=== PATIENT | female | born 1980 | race Caucasian/White ===

== ENCOUNTER 2017-02-02 09:35 | Outpatient (CLI) | payer BC ==
[2017-02-02 10:17] LABS: BILIRUBIN,URINE NEGATIVE (NEGATIVE)
[2017-02-02 10:20] LABS: BASOPHILS # (AUTO) 0.1 10^3/uL (0.0-0.1); EOSINOPHILS # (AUTO) 0.2 10^3/uL (0.0-0.7); EOSINOPHILS % (AUTO) 1.5 %; HCT - HEMATOCRIT 40.4 % (37.0-47.0); HGB - HEMOGLOBIN 13.4 g/dL (12.0-16.0); LYMPHOCYTES # (AUTO) 1.9 10^3/uL (1.5-3.5); LYMPHOCYTES % (AUTO) 17.9 %; MEAN CORPUSCULAR HEMOGLOBIN 31.4 pg (27.0-31.0); MEAN CORPUSCULAR HGB CONC 33.3 g/dL (32.0-36.0); MEAN CORPUSCULAR VOLUME 94.5 fL (81.0-99.0); MEAN PLATELET VOLUME 8.8 fL (7.9-10.8); MONOCYTES # (AUTO) 0.8 10^3/uL (0.0-1.0); MONOCYTES % (AUTO) 7.7 %; NEUTROPHILS # (AUTO) 7.5 10^3/uL (1.5-6.6); NEUTROPHILS % (AUTO) 71.9 %; RED BLOOD COUNT 4.28 10^6/uL (4.20-5.40); RED CELL DISTRIBUTION WIDTH 13.2 % (12.0-15.0); UNCORRECTED WHITE BLOOD COUNT 10.4 x10^3/uL; WHITE BLOOD COUNT 10.4 x10^3/uL (4.8-10.8)
[2017-02-02 10:30] LABS: HEMOGLOBIN A1C 0.44 g/dL
[2017-02-06 20:41] LABS: TEST RESULT REPORT
== END 2017-02-02 09:36 | disposition home or self-care (01) ==
LOC: LAB 09:35
PROVIDERS: ATTEND Registered Nurse
DX: Z36.9 Encounter for antenatal screening, unspecified (principal)
CPT/HCPCS: 36415; 81001; 81599; 83036; 84443; 85025; 86762; 86850; 86900; 86901; 87340; 87389

== ENCOUNTER 2017-02-23 10:28 | Outpatient (CLI) | payer BC ==
[2017-02-24 06:23] LABS: TEST RESULT REPORT
[2017-02-27 14:22] LABS: TEST RESULT REPORT
== END 2017-02-23 10:29 | disposition home or self-care (01) ==
LOC: LAB 10:28
PROVIDERS: ATTEND Registered Nurse
DX: O28.8 Other abnormal findings on antenatal screening of mother (principal); Z36.0 Encounter for antenatal screening for chromosomal anomalies
CPT/HCPCS: 36415; 81599; 84163; 86592

== ENCOUNTER 2017-03-23 10:34 | Outpatient (CLI) | payer BC | END 2017-03-23 10:35 | disposition home or self-care (01) | LOC: LAB 10:34 | PROVIDERS: ATTEND Nurse Practitioner Obstetrics & Gynecology | DX: Z36.9 Encounter for antenatal screening, unspecified (principal) | CPT/HCPCS: 36415; 81599; 82105; 82677; 84163; 84702; 86336 ==

== ENCOUNTER 2017-04-27 12:30 | Outpatient (CLI) | payer BC, OTHER ==
--- NOTE | 2017-05-01 12:07 | Ultrasound Report ---
OB ULTRASOUND: 04/27/2017 CLINICAL INDICATION: anatomy. TECHNIQUE: Real-time scanning was performed with public service representative static images obtained. LAST MENSTRUAL PERIOD: unknown Clinical Age: -- US Age: 20 weeks 6 days EFW Hadlock: 394 grams EFW% Hadlock: -- Heart Rate: 124 bpm EDC: -- US EDC: 09/08/2017 BPD Hadlock: 20 weeks 6 days; Mean mm 49 HC Hadlock: 20 weeks 2 days; Mean mm 179 AC Hadlock: 21 weeks 4 days; Mean mm 165 FL Hadlock: 20 weeks 4 days; Mean mm 34 Presentation: variable Placental Location: posterior Cervical Length: 4.9 cm Amniotic Fluid: 16.95 cm FINDINGS: There is a single viable intrauterine gestation, in variable position. heart rate is 124 BPM. The placenta is posterior, without evidence of previa. Amniotic fluid volume is subjectively normal, with the deepest pocket of 4.8 cm. By size, the fetus measures 20 weeks 6 days ( uncertain LMP) The following anatomic structures were visualized and appear normal: The intracranial contents, including the ventricles and posterior fossa; the lips and orbits; the spine; the heart, including 4 chamber view and outflow tracts, and diaphragm; the abdominal contents, including the stomach, the bilateral kidneys, and urinary bladder, as well as a normal 3 vessel cord insertion; 4 limbs. Note is made of bilateral mild renal pelviectasis, measuring 4 mm on the right and 3 mm on the left. This should be followed up in the third trimester. No free fluid or adnexal lesion is appreciated. IMPRESSION: SINGLE VIABLE INTRAUTERINE GESTATION, MEASURING 20 WEEKS 6 DAYS BY SIZE. MILD BILATERAL RENAL PELVIECTASIS. THIS SHOULD BE FOLLOWED UP IN THE THIRD TRIMESTER. TD: 04/27/2017 18:07 [facility]
== END 2017-04-27 12:31 | disposition home or self-care (01) ==
LOC: DI 12:30
PROVIDERS: ATTEND Nurse Practitioner Obstetrics & Gynecology
DX: Z36.9 Encounter for antenatal screening, unspecified (principal); O28.3 Abnormal ultrasonic finding on antenatal screening of mother; Z3A.20 20 weeks gestation of pregnancy
CPT/HCPCS: 76811

== ENCOUNTER 2017-06-19 08:45 | Outpatient (CLI) | payer BC, OTHER ==
[2017-06-19 09:04] VITALS: BP 120/79
[2017-06-19 09:25] LABS: HGB - HEMOGLOBIN 12.5 g/dL (12.0-16.0); MEAN CORPUSCULAR HEMOGLOBIN 31.7 pg (27.0-31.0); MEAN CORPUSCULAR HGB CONC 33.8 g/dL (32.0-36.0); MEAN CORPUSCULAR VOLUME 93.7 fL (81.0-99.0); MEAN PLATELET VOLUME 9.4 fL (7.9-10.8); RED BLOOD COUNT 3.96 10^6/uL (4.20-5.40); RED CELL DISTRIBUTION WIDTH 13.5 % (12.0-15.0); WHITE BLOOD COUNT 9.7 x10^3/uL (4.8-10.8)
[2017-06-19 09:54] LABS: D-DIMER 303.9 ng/mL (200.0-255.0)
--- NOTE | 2017-06-19 15:10 | Ultrasound Report ---
OB LIMITED ULTRASOUND: 06/19/2017 COMPARISON: OB ultrasound 04/27/2017. INDICATION: Vaginal bleeding. TECHNIQUE: Sonographic evaluation of single intrauterine . Limited. LAST MENSTRUAL PERIOD 12/02/2016 Clinical Age 28 weeks 3 days US Age -- EFW Hadlock grams -- EFW% Hadlock -- Heart Rate bpm 135 EDC 09/08/2017 US EDC -- BPD Hadlock -- HC Hadlock -- AC Hadlock -- FL Hadlock -- Presentation cephalic Placental Location posterior Cervical Length 3.3 cm Amniotic Fluid 11.7 cm; MVP 3.7 cm FINDINGS Single viable intrauterine . heart rate 135 beats per minute. Cephalic presentation. Placenta posterior. No evidence of placenta previa. ANAIS 12. Cervix long and closed. 3.3 cm. Adnexa appear unremarkable. IMPRESSION: SINGLE VIABLE INTRAUTERINE ABOVE IN CEPHALIC PRESENTATION. NO ACUTE ULTRASOUND FINDINGS.. TD: 06/19/2017 10:19 [facility]
== END 2017-06-19 11:35 | disposition home or self-care (01) ==
LOC: WFO 08:45 → FBP 08:47 → WFO 11:35
PROVIDERS: ATTEND Nurse Practitioner Obstetrics & Gynecology
DX: O46.93 Antepartum hemorrhage, unspecified, third trimester (principal); Z3A.28 28 weeks gestation of pregnancy
CPT/HCPCS: 36415; 76815; 85379; 85384; 85730; 86850; 86900; 86901; 99214

== ENCOUNTER 2017-07-05 18:57 | Outpatient (CLI) | payer OTHER ==
--- NOTE | 2017-07-06 12:02 | Ultrasound Report ---
REVISED: REPORT ORIGINALLY SIGNED ON 07/06/2017@1239; ORDERS LINKED ON 2017 jll OB FOLLOWUP: 07/05/2017 CLINICAL INDICATION: Spotting. TECHNIQUE: Transabdominal pelvic ultrasound performed for global evaluation. Transvaginal pelvic ultrasound performed for detailed evaluation. Real-time scanning performed and static images obtained. LAST MENSTRUAL PERIOD 12/02/2016 Clinical Age 30 weeks 5 days LMP US Age 30 weeks 1 day EFW Hadlock 1526 grams EFW% Hadlock -- Heart Rate 126 bpm [facility] 09/08/2017 [facility] 09/12/2017 BPD Hadlock 31 weeks 3 days; Mean mm 78 HC Hadlock 30 weeks 0 days; Mean mm 275 AC Hadlock 30 weeks 4 days; Mean mm 264 FL Hadlock 29 weeks 3 days; Mean mm 56 Presentation cephalic Placental Location posterior Cervical Length 4.7 cm Amniotic Fluid ANAIS 15 cm; MVP 4.5 cm FINDINGS: There is a single viable intrauterine gestation, in cephalic presentation. heart rate is 126 BPM. The placenta is posterior, without evidence of previa. Amniotic fluid volume is normal, with an ANAIS of 15. By size, the fetus measures 30 weeks 1 day (30 weeks 5 days by LMP). Estimated weight by Hadlock method is 1526 grams. The cervix measures 4.7 cm, and is closed. No free fluid or adnexal lesion is seen. IMPRESSION: SINGLE VIABLE INTRAUTERINE GESTATION, WITH THE SIZE IN KEEPING WITH LMP DATING. NORMAL CERVIX. TD: 07/06/2017 09:44 MTDD
== END 2017-07-05 18:58 | disposition home or self-care (01) ==
LOC: DI 18:57
PROVIDERS: ATTEND Nurse Practitioner Obstetrics & Gynecology
DX: O26.853 Spotting complicating pregnancy, third trimester (principal); Z36.86 Encounter for antenatal screening for cervical length
CPT/HCPCS: 76816; 76817

== ENCOUNTER 2017-08-10 11:21 | Outpatient (CLI) | payer OTHER ==
--- NOTE | 2017-08-13 18:04 | Ultrasound Report ---
EXAM: OB FOLLOWUP 08/10/2017 CLINICAL INDICATION: Recheck renal pelviectasis, spotting, check cervix. TECHNIQUE: Real-time scanning was performed with business process representative static images obtained. LAST MENSTRUAL PERIOD: 12/02/2016 Clinical Age: 35 weeks 6 days US Age: 36 weeks 1 day EFW Hadlock: 2954 grams EFW% Hadlock: -- Heart Rate: 120 bpm EDC: 09/08/2017 US EDC: 09/06/2017 BPD Hadlock: 35 weeks 5 days; Mean mm 88.5 HC Hadlock: 35 weeks 2 days; Mean mm 314.3 AC Hadlock: 36 weeks 6 days; Mean mm 330.0 FL Hadlock: 36 weeks 4 days; Mean mm 71.3 Presentation: cephalic Placental Location: posterior Cervical Length: 4.03 cm Amniotic Fluid: ANAIS 13.44 cm; MVP 5.01 cm FINDINGS: There is a single viable intrauterine gestation, in cephalic presentation. heart rate is 120 BPM. The placenta is posterior, without evidence of previa. Amniotic fluid volume is normal, with an ANAIS of 13.4. The cervix measures 4 cm, and is closed. Mild bilateral renal pelviectasis persists, measuring 4 mm bilaterally. By size, the fetus measures 36 weeks 1 day (35 weeks 6 days by LMP). Estimated weight by Hadlock method is 2954 grams. IMPRESSION: STABLE MILD BILATERAL RENAL PELVIECTASIS, MEASURING 4 MM BILATERALLY. EXPECTED GROWTH. NORMAL AMNIOTIC FLUID INDEX. NORMAL CERVIX. TD: 08/10/2017 13:53 MTDD
== END 2017-08-10 11:22 | disposition home or self-care (01) ==
LOC: DI 11:21
PROVIDERS: ATTEND Nurse Practitioner Obstetrics & Gynecology
DX: Z36.86 Encounter for antenatal screening for cervical length (principal); O36.8930 Maternal care for other specified fetal problems, third trimester, not applicable or unspecified; O26.853 Spotting complicating pregnancy, third trimester; Z3A.36 36 weeks gestation of pregnancy
CPT/HCPCS: 76816

== ENCOUNTER 2017-08-17 11:59 | Outpatient (CLI) | payer OTHER | END 2017-08-17 12:00 | disposition home or self-care (01) | LOC: LAB.R 11:59 | PROVIDERS: ATTEND Registered Nurse | DX: Z34.83 Encounter for supervision of other normal pregnancy, third trimester (principal) | CPT/HCPCS: 87081 ==

== ENCOUNTER 2017-08-24 10:01 | Outpatient (CLI) | payer OTHER ==
[2017-08-24 10:31] LABS: CREATININE,URINE 98.1 mg/dL; PROTEIN/CREATININE RATIO,URINE 0.1 (<=0.2)
[2017-08-24 10:32] LABS: ALBUMIN/GLOBULIN RATIO 0.8 (1.0-2.2); BILIRUBIN,TOTAL 0.5 mg/dL (0.2-1.0); CALCIUM 8.5 mg/dL (8.5-10.3); CREATININE 0.5 mg/dL (0.4-1.0); TOTAL PROTEIN 6.8 g/dL (6.7-8.2)
[2017-08-24 13:12] VITALS: BP 100/64
--- NOTE | 2017-08-25 04:17 | Labor Flowsheet ---
Labor Flowsheet Datetime Report Generated by CPN: 08/25/2017 04:17 Datetime: 08/24/2017 11:07 VITAL SIGNS NBP Sys/Ericka/Mean (mmHg): 100 : 64 : 76 Datetime: 08/24/2017 11:05 Pulse: 85 SpO2 (%): 96
== END 2017-08-24 11:25 | disposition home or self-care (01) ==
LOC: LAB 10:01 → FBP 10:15 → LAB 11:25
PROVIDERS: ATTEND Nurse Practitioner Obstetrics & Gynecology
DX: O13.3 Gestational [pregnancy-induced] hypertension without significant proteinuria, third trimester (principal); Z3A.37 37 weeks gestation of pregnancy
CPT/HCPCS: 36415; 59025; 80053; 82570; 84156; 84550

== ENCOUNTER 2017-08-31 09:57 | Outpatient (CLI) | payer OTHER ==
[2017-08-31 10:26] VITALS: BP 114/71
[2017-08-31 10:46] LABS: RUPTURE OF MEMBRANES PLUS NEGATIVE (NEGATIVE)
[2017-08-31 12:03] LABS: RUPTURE OF MEMBRANES PLUS NEGATIVE (NEGATIVE)
== END 2017-08-31 12:15 | disposition home or self-care (01) ==
LOC: WFO 09:57 → FBP 09:58 → WFO 12:15
PROVIDERS: ATTEND Nurse Practitioner Obstetrics & Gynecology
DX: O47.1 False labor at or after 37 completed weeks of gestation (principal); Z3A.38 38 weeks gestation of pregnancy
CPT/HCPCS: 59025; 84112

== ENCOUNTER 2017-09-01 04:24 | Inpatient (IN) | payer OTHER ==
[2017-09-01] MEDS ORDERED: MORPHINE 10 MG/ML VIAL IM ONE (04:34)
[2017-09-01] MEDS ORDERED: SODIUM CHLORIDE FLUSH 0.9% 10 ML SYRINGE IVP PRN (04:51)
[2017-09-01] MEDS ORDERED: PROMETHAZINE 25 MG/1 ML VIAL IM SCH (05:00)
[2017-09-01] MEDS ORDERED: LACTATED RINGERS 1,000 ML IV SCH (05:00)
[2017-09-01] MEDS ORDERED: fentaNYL 100 MCG/2 ML VIAL IVP PRN (05:17)
[2017-09-01] MEDS ORDERED: ONDANSETRON 4 MG/2 ML VIAL IVP PRN ×2 (05:18→06:39)
--- NOTE | 2017-09-01 05:21 | HISTORY & PHYSICAL EXAMINATION ---
Admit History - Instructions Nulato/Slash: -Left hand click circles element as positive or present. -Right hand click slashes element as negative or not present. - Visit Reason Visit Reason: Contractions (beginning at 00:00, progressively painful since that time) - : 3 Parity: 2 Premature: 0 Ectopic: 0 : 0 Care: positive: [facility] (beginning @ 7 weeks x11 visits) Risk/History: positive: None Complications This : positive: None Smoking Status: Never smoker - Mother's Labs Mother's Blood Type: positive: O Mother's RH: positive: Positive GBS: positive: Group B Step Negative Rubella Status: positive: Immune - Other Maternal History Other Maternal History: 44# weight gain this Meds/Allgy - Allergies Allergies/Adverse Reactions: Allergies Allergy/AdvReac Type Severity Reaction Status Date / Time No Known Drug Allergies Allergy Verified 08/13/14 00:54 Review of Systems - Constitutional Constitutional: reports: Fatigue. denies: Fever, Chills - Cardiovascular Cariovascular: reports: Edema. denies: Irregular heart rate, Palpitations, Chest pain - Respiratory Respiratory: denies: Cough, Sputum production, Wheezing, SOB at rest, SOB with exertion - Gastrointestinal Gastrointestinal: reports: Abdominal pain (uterine contractions), Change in bowel habits (loose stools x24 hours). denies: Constipation, Diarrhea - Genitourinary Genitourinary: reports: Frequency, Urgency, Incontinence (OFE). denies: Dysuria - Musculoskeletal Musculoskeletal: reports: Muscle pain, Back pain (severe lumbar pain, round ligament pain, b/l) - Integumentary Integumentary: reports: Pigment changes (cholasma, facial). denies: Rash, Pruritis (chloasma), Acne - Neurological Neurological: denies: General weakness, Focal weakness, Headache, Dizziness, Numbness - Psychiatric Psychiatric: denies: Depression, Anxiety - Hematologic/Lymphatic Hematologic/Lymphatic: denies: Bruising - All Other Systems All Other Systems: reports: Reviewed and negative, Other (No LOF, +bloody show, + uterine contractions, increasingly painful, +FM) Physical - Abdominal Exam Vital Signs: Temp Pulse Resp BP Pulse Ox 36.7 C 86 18 122/67 96 09/01/17 04:36 09/01/17 04:36 09/01/17 04:36 09/01/17 04:36 09/01/17 04:36 Contraction Frequency (min/apart): 2-4 Contraction Intensity: positive: Moderate to strong Uterine Resting Tone: positive: Soft - Monitoring Heart Rate Baseline: 125 Strip Review: positive: Category I - Presentation Presentation: positive: Vertex - Vaginal Exam Membranes: positive: Membranes intact Dilation (in cm): 6 Effacement (%): 90 Station: positive: -1 (per RN) Cervical Position: positive: Anterior - Speculum Exam Speculum Exam Performed: positive: No Findings: negative: Gross leak - Other Notes Labor Progress Note/Additional Text: Renate Lamb is a 36 y/o @ 38w5d by LMP consistent w/ 7 week US who received consistent care at [facility] beginning at 7 weeks x11 total visits. Her care was complicated by the undesired nature of the , considerable social stress, pelvic pain, and stable pelviectasis b/l (4mm) . She had an isolated episode of bright red vaginal bleeding at 28 weeks' gestation &, at that time, had no evidence of abruption or placenta previa. The bleeding resolved spontaneously. Apart from a false-positive syphilis screening in the first trimester, Rneate has had unremarkable screening. She is Rh positive, and she screened negative for GBS @ 36 weeks. She presents this morning w/ a complaint of 5 hours of progressively painful contraction activity. She is tearful with her contractions & is requesting epidural anesthesia for pain management. She is accompanied by her , Juan F, who is involved & supportive. She denies LOF, reports some mucoid bloody vaginal d/c, reports good FM. She is expecting a female infant & she does not plan to breastfeed; she requests suppression w/ cabergoline. 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 [email or web address]; to Juan F, denies DV; denies depression/anxiety; lots of social stressors, including child w/ pervasive developmental delay, unintentional , does not intend to breastfeed; denies tobacco/ETOH/drugs PE: GEN: AAOx3, uncomfortable gravid female HEENT: Grossly normocephalic, atraumatic, chloasma noted LUNGS: CTA b/l t/o HEART: [id number] GI: Abd gravid, tender w/ contractions; lie longitudinal, presentation cephalic EFW difficult to accurately appreciate secondary to abdominal adiposity : No lesions; SVE per RN /-1 IBOW OB: FHTs 125bpm, + accels, no decels, mod martha TOCO: UCs q 2-4 min x60-80 seconds, palp mod MS: FROM t/o, no deformity, +1 b/l pedal edema, no erythema, negative Miguel Ángel's SKIN: C/D/I, warm, well-perfused, facial chloasma, otherwise no lesion NEURO: No focal deficit PSYCH: Anxious, agitated secondary to pain, requesting epidural Plan for Labor - Plan For Labor I expect patient to be DC'd or transferred within 96 hours.: Yes Plan for Labor: A: 36 y/o @ 38w5d by early first trimester US in active, spontaneous labor IBOW GBS negative Desires epidural anesthesia FHTs cat I Desires suppression pelviectasis (b/l 4mm, stable) P: 1. Admit to FBP, admission labs 2. Begin bolus & page anesthesia for epidural placement, CHAY, fentanyl 100mcg IVP until epidural available 3. Reassess cervical status x4 hours, earlier PRN; AROM for augmentation if no spontaneous progress 4. Cabergoline 1mg po s/p delivery, LAURA bandage to b/l breasts s/p delivery 5. Anticipate
[2017-09-01 05:44] LABS: BASOPHILS # (AUTO) 0.1 10^3/uL (0.0-0.1); EOSINOPHILS # (AUTO) 0.1 10^3/uL (0.0-0.7); HGB - HEMOGLOBIN 13.7 g/dL (12.0-16.0); MONOCYTES # (AUTO) 0.9 10^3/uL (0.0-1.0)
[2017-09-01 05:48] LABS: BASOPHILS % (AUTO) 0.7 %; EOSINOPHILS % (AUTO) 0.7 %; LYMPHOCYTES # (AUTO) 1.7 10^3/uL (1.5-3.5); LYMPHOCYTES % (AUTO) 13.2 %; MEAN CORPUSCULAR HEMOGLOBIN 30.6 pg (27.0-31.0); MEAN CORPUSCULAR HGB CONC 32.6 g/dL (32.0-36.0); MEAN PLATELET VOLUME 9.6 fL (7.9-10.8); MONOCYTES % (AUTO) 6.9 %; NEUTROPHILS # (AUTO) 10.4 10^3/uL (1.5-6.6); NEUTROPHILS % (AUTO) 78.5 %; PLT - PLATELET COUNT 207 10^3/uL (130-450); RED BLOOD COUNT 4.48 10^6/uL (4.20-5.40); RED CELL DISTRIBUTION WIDTH 14.6 % (12.0-15.0); WHITE BLOOD COUNT 13.3 x10^3/uL (4.8-10.8)
[2017-09-01] MEDS ORDERED: OXYTOCIN/SODIUM CHLORIDE 500 ML IV ONE (06:30)
[2017-09-01] MEDS ORDERED: ePHEDrine 50 MG/ML VIAL IVP PRN (06:39)
[2017-09-01] MEDS ORDERED: OXYTOCIN/SODIUM CHLORIDE 250 ML IV ONE (06:39)
[2017-09-01] MEDS ORDERED: WITCH HAZEL/GLYCERIN 1 EACH MED..PAD TOP PRN (06:39)
[2017-09-01] MEDS ORDERED: LACTATED RINGERS 500 ML IV ONE (06:39)
[2017-09-01] MEDS ORDERED: CABERGOLINE 0.5 MG TABLET PO ONE (06:39)
[2017-09-01] MEDS ORDERED: diphenhydrAMINE INJ 50 MG/ML VIAL IVP PRN (06:39)
[2017-09-01] MEDS ORDERED: NALBUPHINE 20 MG/ML AMP IVP PRN (06:39)
[2017-09-01] MEDS ORDERED: HYDROCORTISONE/PRAMOXINE 10 GM PR PRN (06:39)
[2017-09-01] MEDS ORDERED: HYDROCORTISONE 1% CREAM 28 GM TUBE PR PRN (06:39)
[2017-09-01] MEDS ORDERED: NALOXONE 0.4 MG/ML VIAL IVP PRN (06:39)
[2017-09-01] MEDS ORDERED: MAGNESIUM HYDROXIDE 2,400 MG/30 ML UDC PO PRN (06:39)
--- NOTE | 2017-09-01 06:47 | DELIVERY NOTE ---
Delivery Note - Labor Labor: positive: Spontaneous - Delivery Method Delivery Method: positive: Spontaneous vaginal delivery - Presentation Presentation: positive: Vertex, OA - occiput anterior - Nuchal Cord Nuchal Cord: positive: None - Anesthetic Anesthetic Type: - Amniotic Fluid Description Amniotic Fluid Description: positive: Clear (AROM @ 0620, FOR A TOTAL RUPTURED DURATION OF 8 MIN) - Episiotomy Type Episiotomy Type: positive: None - Laceration Laceration: positive: None - Delivery Outcome Delivery Outcome: positive: Livebirth - : positive: Stimulated, Warmed, [place] used [place] sex: positive: Female - Cord Cord: positive: 3 vessels - Placenta Placenta: positive: Intact, Spontaneous - Estimated Blood Loss Estimated Blood Loss (in cc): 150 - Post Delivery Events Post Delivery Events: positive: No post delivery events - Delivery Comments (Free Text/Narrative) Delivery Comments (Free Text/Narrative): Renate Lamb is a 36 y/o [id number] who presented @ 38w5d in spontaneous, active labor. She was 6cm dilated on admission @ 0500, w/ onset of uterine contractions @ 00:00. She progressed rapidly & spontaneously & received 1 dose of 100mcg IV fentanyl & epidural placement moments before she was found to be completely dilated w/ a spontaneous urge to push @ 0618, for a total first stage duration of 6hrs 18min. AROM for CAF @ 0620 & pt began pushing @ that point. FHTs were monitored electronically t/o & were consistently cat I. She pushed w/ spontaneous urge to viable female in DOA position @ 0628, for a total 2nd stage duration of 10 min. Infant vigorous w/ spontaneous, lusty cry. Placed to maternal abd for drying/stim. Delayed cord clamping until cessation of pulsation, then cord clamped x2 by CNM, cut by FOB; 3VC noted, cord blood obtained. Active management of the 3rd stage of labor w/ Pitocin in IV fluids. Placenta del spont & intact, Ayaz, @ 0631, for a total 3rd stage duration of 3 min. FF @ U. Vagina & perineum inspected & found to be intact. EBL 15omL. Mother & stable, weight pending. Apgars 9/9. Plans to suppress & bottlefeed; plans pp mirena IUS insertion & does not intend a future . FOB @ bedside, involved & supportive.
[2017-09-01] MEDS ORDERED: SODIUM CHLORIDE FLUSH 0.9% 10 ML SYRINGE IVP SCH (09:00)
[2017-09-01] MEDS: IBUPROFEN 800 MG TABLET PO SCH ×4 (09:45→22:55)
[2017-09-01] MEDS: DOCUSATE SODIUM 100 MG CAPSULE PO SCH ×2 (09:45→22:57)
[2017-09-01] MEDS: ACETAMINOPHEN 500 MG TABLET PO SCH ×2 (09:45→17:52)
[2017-09-01] MEDS: oxyCODONE 5 MG TABLET PO PRN ×2 (18:41→22:57)
[2017-09-02] MEDS: ACETAMINOPHEN 500 MG TABLET PO SCH ×2 (00:17→08:41)
[2017-09-02] MEDS: oxyCODONE 5 MG TABLET PO PRN ×3 (04:18→12:57)
[2017-09-02] MEDS: IBUPROFEN 800 MG TABLET PO SCH ×2 (06:30→12:58)
[2017-09-02] MEDS: DOCUSATE SODIUM 100 MG CAPSULE PO SCH (08:41)
--- NOTE | 2017-09-02 12:32 | Discharge Plan ---
Discharge Plan Disposition: Home, Self Care Condition: Good Prescriptions: oxyCODONE [Roxicodone] 5 mg PO Q4HR PRN #10 tablet PRN Reason: Pain Ibuprofen [Motrin] 800 mg PO Q6H #30 tablet Diet: Regular Activity Restrictions: pelvic rest x6 weeks Shower Restrictions: No Driving Restrictions: No Instruction Topics: Vaginal After, Exercises Kegel Additional Instructions or Follow Up instructions: x3 weeks in outpt clinic w/ Jalen Agudelo No Smoking: If you smoke, Please STOP! Call for help. Follow-up with: Jalen Agudelo, [place], MITCH [Provider Admit Priv/Credential] -
--- NOTE | 2017-09-02 12:34 | DISCHARGE SUMMARY ---
"Discharge Summary Admit Date: 09/01/17 Discharge Date: 09/02/17 Discharging Provider: CARMELITA Code Status: Attempt Resuscitation Condition at Discharge: Good Discharge Disposition: 01 Home, Self Care Discharge Facility Name: [facility] - DIAGNOSES Admission Diagnoses: ACTIVE LABOR @ TERM Discharge Diagnoses with Status of Each Condition: - HPI History of Present Illness: JESSICA BLANCA IS A 36 Y/O [id number] WHO PRESENTED IN ACTIVE, SPONTANEOUS LABOR @ 38W5D BY EARLY 1ST TRIMESTER US. SHE PROGRESSED READILY TO COMPLETE DILATATION. SHE RECEIVED 1 DOSE IV FENTANYL & AN EPIDURAL PLACEMENT FOR PAIN CONTROL PRIOR TO SECOND STAGE OF LABOR. SHE PUSHED W/ EXCELLENT EXPULSIVE EFFORT TO ACHIEVE OF VIABLE FEMALE OVER AN INTACT PERINEUM W/O COMPLICATION. - CONSULTS | PROCEDURES Consultations: ANESTHESIA Procedures: EPIDURAL PLACEMENT AROM - HOSPITAL COURSE Hospital Course: , JESSICA IS AMBULATING & VOIDING W/O DIFFICULTY. SHE IS PASSING FLATUS & TOLERATING A REGULAR DIET. SHE IS SUPPRESSING PER HER DESIRE & HAS A TIGHT SPORTS BRA ON & HAS TAKEN 1 DOSE OF 1MG CABERGOLINE PO. SHE HAS INTERMITTENT PAIN THAT IS POORLY CONTROLLED W/ TYLENOL & IBUPROFEN & HAS TAKEN SOME SPARING OXYCODONE ORALLY W/ GOOD RELIEF. SHE IS PLANNING TO BOTTLEFEED HER INFANT EXCLUSIVELY. SHE IS PLANNING TO RETURN TO WORK IN 12 WEEKS. HER PARTNER WILL HAVE A FEW DAYS OFF OF WORK TO ASSIST HER W/ HER OTHER CHILDREN @ HOME & HER MOTHER HAS COME FROM THE [facility] TO STAY W/ HER FOR THE NEXT 2 MONTHS TO ASSIST HER. SHE REPORTS NO PERINEAL DISCOMFORT & MINIMAL LOCHIA RUBRA. SHE DOES NOT PLAN ANOTHER & IS INTENDING MIRENA IUS INSERTION @ HER 8 WEEK PP VISIT. SHE DENIES HX OF PP DEPRESSION. SHE IS ABLE TO FULLY ARTICULATE PP WARNING S/SX, INCLUDING PP DEPRESSION S/SX, AND PP AFTERCARE INSTRUCTIONS. SHE IS READY TO LEAVE THE HOSPITAL. - ALLERGIES Allergies/Adverse Reactions: Allergies Allergy/AdvReac Type Severity Reaction Status Date / Time No Known Drug Allergies Allergy Verified 08/13/14 00:54 - MEDICATIONS Home Medications: Ambulatory Orders Medication Instructions Recorded Confirmed Ibuprofen [Motrin] 800 mg PO Q6H #30 tablet 09/02/17 oxyCODONE [Roxicodone] 5 mg PO Q4HR PRN #10 tablet 09/02/17 - PHYSICAL EXAM AT DISCHARGE General Appearance: positive: No acute distress, Alert Eyes Bilateral: positive: Normal inspection Respiratory: positive: Chest non-tender, No respiratory distress, Breath sounds nml Cardiovascular: positive: Regular rate & rhythm, No murmur, No gallop Abdomen: positive: Non-tender, No organomegaly, No distention, Other (FF U-2) Skin: positive: Color nml, No rash, Warm, Dry Extremities: positive: Non-tender, Full ROM, Nml appearance, No pedal edema. negative: Calf tenderness, Miguel Ángel's sign/cords Neurologic/Psychiatric: positive: Oriented x3, CN's nml (2-12), Motor nml, Sensation nml, Mood/affect nml - LABS Result Diagrams: 09/01/17 05:30 - FOLLOW UP Follow Up: X3 WEEKS W/ ARGENIS MAE CNM, PRINCIPAL QUALITY ENGINEER, EARLIER PRN - TIME SPENT Time Spent in Discharge (Minutes): 20"
[2017-09-02 14:11] VITALS: BP 114/67
--- NOTE | 2017-09-02 16:27 | Labor Flowsheet ---
Labor Flowsheet Datetime Report Generated by CPN: 09/02/2017 16:26 Datetime: 09/02/2017 13:05 VITAL SIGNS NBP Sys/Ericka/Mean (mmHg): 114 : 67 : 79 Pulse: 71 LaborFlag: Labor Datetime: 09/02/2017 13:04 SpO2 (%): 98 Datetime: 09/01/2017 06:30 Contraction Comments: placenta delivered intact Datetime: 09/01/2017 06:18 Stage of : Labor VAGINAL EXAM Membranes Ruptured Date/Time: 09/01/2017 06:18 Membranes Rupture Method: Artificial Amniotic Fluid Color: Clear Amniotic Fluid Amount: Moderate Datetime: 09/01/2017 06:12 ANESTHESIA Anesthesia Plans: Epidural Epidural Positioning: Side Lying Epidural Procedure: Loading Dose Datetime: 09/01/2017 06:10 UTERINE ACTIVITY Monitor Mode: External Frequency (min): 3 Quality: Strong Duration (sec): 50-60 Resting Tone (Palpate): Relaxed ASSESSMENT A Monitor Mode: External US Monitor Interventions for FHR: Ultrasound Adjusted FHR Baseline Rate : 120 Variability: Moderate 6-25 bpm Accelerations: 15X15 Decelerations: Early Category: Category I COMMUNICATION Communication: Provider at Bedside Datetime: 09/01/2017 06:04 PROCEDURE TIME OUT Procedure Verify: Correct Patient Identity; Correct Side and Site are Marked; Accurate Procedure Co nsent Form; Agreement on Procedure to be Done; Correct Patient Position Datetime: 09/01/2017 05:59 Comments: sitting for epidural Datetime: 09/01/2017 05:49 Monitor Interventions for UA: [place] Adjusted PATIENT CARE Oxygen Method: Room Air Datetime: 09/01/2017 05:44 MEDICATIONS Analgesics/Sedatives: Fentanyl (mcg) @ Datetime: 09/01/2017 05:32 Anesthesia Comments: Lorena Pham notified of request for epidural via phone. Will be in. Datetime: 09/01/2017 05:15 Pattern: Normal: <= 5 Contractions in 10 Minutes
== END 2017-09-02 14:30 | disposition home or self-care (01) | DRG 775 ==
LOC: WFO 04:24 → FBP 04:26 → WFO 04:48 → FBP 04:51
PROVIDERS: ADMIT Registered Nurse; ATTEND Registered Nurse
PROC: 10E0XZZ Delivery of Products of Conception, External Approach (ICD-10-PCS; principal; 2017-09-01)
PROC: 10907ZC Drainage of Amniotic Fluid, Therapeutic from Products of Conception, Via Natural or Artificial Opening (ICD-10-PCS; 2017-09-01)
DX: O36.8930 Maternal care for other specified fetal problems, third trimester, not applicable or unspecified (principal); Z3A.38 38 weeks gestation of pregnancy; Z37.0 Single live birth; Z63.8 Other specified problems related to primary support group
CPT/HCPCS: 85025; 99213

== ENCOUNTER 2020-01-09 14:36 | Outpatient (CLI) | payer OTHER ==
[2020-01-09 20:19] LABS: FREE T4 (FREE THYROXINE) 0.77 ng/dL (0.58-1.64)
== END 2020-01-09 23:59 | disposition home or self-care (01) ==
LOC: LAB.WCP 14:36
PROVIDERS: ATTEND Family Medicine
DX: E03.9 Hypothyroidism, unspecified (principal)
CPT/HCPCS: 36415; 84439; 84443

== ENCOUNTER 2020-05-25 16:09 | Outpatient (CLI) | payer OTHER | END 2020-05-25 16:10 | disposition home or self-care (01) | LOC: COV 16:09 | PROVIDERS: ATTEND Family Medicine | DX: R19.7 Diarrhea, unspecified (principal); R43.8 Other disturbances of smell and taste; R11.2 Nausea with vomiting, unspecified; Z20.822 Contact with and (suspected) exposure to COVID-19 ==

== ENCOUNTER 2020-07-14 08:00 | Outpatient (CLI) | payer OTHER ==
[2020-07-14 18:24] LABS: BASOPHILS # (AUTO) 0.1 10^3/uL (0.0-0.1); BASOPHILS % (AUTO) 1.1 %; EOSINOPHILS # (AUTO) 0.2 10^3/uL (0.0-0.7); EOSINOPHILS % (AUTO) 2.1 %; HCT - HEMATOCRIT 41.9 % (37.0-47.0); HGB - HEMOGLOBIN 13.3 g/dL (12.0-16.0); LYMPHOCYTES # (AUTO) 2.8 10^3/uL (1.5-3.5); LYMPHOCYTES % (AUTO) 35.4 %; MEAN CORPUSCULAR HEMOGLOBIN 31.1 pg (27.0-31.0); MEAN CORPUSCULAR HGB CONC 31.7 g/dL (32.0-36.0); MEAN CORPUSCULAR VOLUME 97.9 fL (81.0-99.0); MEAN PLATELET VOLUME 10.9 fL (7.9-10.8); MONOCYTES # (AUTO) 0.8 10^3/uL (0.0-1.0); MONOCYTES % (AUTO) 10.6 %; NEUTROPHILS % (AUTO) 50.4 %; PLT - PLATELET COUNT 262 10^3/uL (130-450); RED BLOOD COUNT 4.28 10^6/uL (4.20-5.40); RED CELL DISTRIBUTION WIDTH 12.6 % (12.0-15.0); WHITE BLOOD COUNT 7.9 x10^3/uL (4.8-10.8)
[2020-07-14 18:50] LABS: THYROID STIMULATING HORMONE 3.07 uIU/mL (0.34-5.60)
[2020-07-14 18:56] LABS: FERRITIN 62.9 ng/mL (11.0-306.8)
== END 2020-07-14 23:59 | disposition home or self-care (01) ==
LOC: LAB.WCP 08:00
PROVIDERS: ATTEND Physician Assistant Medical
DX: N98.9 Complication associated with artificial fertilization, unspecified (principal); E03.9 Hypothyroidism, unspecified
CPT/HCPCS: 36415; 82728; 84443; 85025